=== PATIENT | male | born 1975 | race Caucasian/White ===

== ENCOUNTER → 2024-08-28 | Outpatient (CLI) | payer OTHER, SELFPAY ==
[2024-08-28 10:51] LABS: Absolute Lymphocyte Count 1.76 X10^3/uL (0.83-4.51); Absolute Neutrophil Count 2.5 X10^3/uL (2.0-7.7); Basophil# 0.03 X10^3/uL; Basophil% 0.6 % (0-1); Eosinophil# 0.13 X10^3/uL; Eosinophils% 2.5 % (0-5); Hematocrit 39.9 % (40-54); Hemoglobin 13.7 g/dL (13.0-16.5); Lymphocyte # 1.76 X10^3/ul (0.83-4.51); Lymphocyte % 34.3 % (19-41); Mean Corp Hgb Conc 34.3 g/dL (32-36); Mean Corpuscular Hgb 28.9 pg (27.0-32.0); Mean Corpuscular Volume 84.2 fL (80-94); Monocyte# 0.65 X10^3/uL; Monocyte% 12.7 % (0-10); NRBC Flagged by Analyzer 0 % (0-5); Neutrophil # 2.53 X10^3/uL (2.7-7.7); Neutrophil % 49.3 % (47-70); Platelet Count 236 K/mm3 (150-450); RBC Distribution Width CV 12.5 % (11.6-14.6); RBC Distribution Width SD 37.7 fl (35.1-43.9); Red Blood Count 4.74 M/mm3 (4.6-6.2); White Blood Count 5.1 K/mm3 (4.4-11.0)
[2024-08-28 12:18] LABS: ALB/GLOB Ratio 1.8 RATIO (0.9-2.4); AST(SGOT) 38 U/L (<=37); Alanine Aminotransfer ALT/SGPT 50 U/L (<=46); Albumin, Serum 4.6 g/dL (3.5-5.0); Alkaline Phosphatase 56 U/L (40-129); Anion Gap 13 (5-15); BUN 20 mg/dL (4-19); Calcium,Total 9.7 mg/dL (7.6-11.0); Carbon Dioxide 22.8 mmol/L (21.0-32.0); Chloride 104 mmol/L (98-108); Creatinine, Serum 1.07 mg/dL (0.70-1.20); EST Glomerular Filtration Rate 86 (>60); Globulin 2.6 g/dL (2.2-4.2); Glucose 97 mg/dL (70-99); Hepatitis B Surface Antibody Nonreactive; Hepatitis B Surface Antigen Nonreactive (Nonreactive); Hepatitis C Antibody Nonreactive (Nonreactive); Potassium 4.3 mmol/L (3.3-5.1); Protein, Total 7.1 g/dL (5.9-8.4); Sodium Level 139 mmol/L (133-145); Total Bilirubin 0.54 mg/dL (0.00-1.30)
[2024-08-29 05:07] LABS: Hepatitis A AB, Total Negative (Negative); Hepatitis B Core Ab Total Negative (Negative)
== END | disposition home or self-care (01) ==
LOC: LAB 10:15
PROVIDERS: PCP Family Medicine; Referring Provider Nurse Practitioner Acute Care; Visit Provider Nurse Practitioner Acute Care
DX: K76.0 Fatty (change of) liver, not elsewhere classified (principal); K83.8 Other specified diseases of biliary tract; E78.1 Pure hyperglyceridemia
CPT/HCPCS: 36415; 80053; 85025; 86704; 86706; 86708; 86803; 87340

== ENCOUNTER 2024-11-01 11:32 | Day surgery (SDC) | payer OTHER, SELFPAY ==
--- NOTE | 2024-10-30 11:59 | PAT.ANE_ITS ---
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 When Was Last Pacemaker Check QUESTION #4 FULL TEXT: You/Your Family Experience fever (hyperthermia) with Anesthesia Last Oral Intake Last Oral intake: Last Oral Intake NPO since Meds taken in AM with sips of water? Meds patient instructed to take am of surgery PONV PONV - manufacturing engineer paint: PONV - manufacturing engineer paint Female No 10/30/24 08:33 HX of Motion Sickness No 10/30/24 08:33 HX of N/V After Surgery No 10/30/24 08:33 Non-Smoker Yes 10/30/24 08:33 Duration of Surgery greater No 10/30/24 08:33 than 60 minutes Number of Risk Factors 1 10/30/24 08:33 PONV Score Low Risk 10/30/24 08:33 Height & Weight Height & Weight: Anesthesia: Height & Weight Height 6 ft 2 in 08/28/24 09:16 Respiratory Assessment Respiratory Assessment - manufacturing engineer paint: Respiratory Tract Infection Hx - manufacturing engineer paint Hx Respiratory Tract Infection No 10/30/24 08:33 STOP Sleep Apnea STOP Sleep Apnea - manufacturing engineer paint: STOP Sleep Apnea - manufacturing engineer paint Hx Hypertension No 10/30/24 08:33 Hx Sleep Apnea Yes 10/30/24 08:33 CPAP Yes 10/30/24 08:33 BIPAP No 10/30/24 08:33 Do you snore loudly (louder No 10/30/24 08:33 than talking or can be heard Do you often feel tired/ No 10/30/24 08:33 fatigued/ sleepy during daytime? Has anyone observed you stop No 10/30/24 08:33 breathing during sleep? STOP Results Positive 10/30/24 08:33 QUESTION #5 FULL TEXT : Do you snore loudly (louder than talking or can be heard through closed doors)? 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 Specify any problems Hx of Preganancy in last 3 N/A 10/30/24 08:33 Months Nurse Filling Out Transfusion DSCHRIBER 10/30/24 08:33 & Questions: Date: 10/30/24 10/30/24 08:33 Time: 08:34 10/30/24 08:33 Patient unable to answer at this time (ie. confused, unrespo /Reproduction History /Reproductive History - manufacturing engineer paint: /Reproductive Hx- manufacturing engineer paint Hx Now No 10/30/24 08:33 Gestational Age (in weeks): EDC: Hx Hx Para Hx Section SAB No 10/30/24 08:33 PFSH Medical History (Updated 10/30/24 @ 08:43 by Mary Connor) Wears partial dentures Cancer Marijuana use Alcohol use Arthritis Fatty liver Back pain Injury of head and neck Gastric reflux Asthma Non-smoker Chest pain History of echocardiogram History of stress test Cardiology follow-up encounter Hypertriglyceridemia Paroxysmal supraventricular tachycardia Anxiety History of eye cancer Home Medications ?Medication ?Instructions ?Recorded ?Last Taken ?Type bupropion HCl 150 mg 24 hr tablet, 150 mg PO QAM 01/09 Unknown History extended release escitalopram oxalate 20 mg tablet 20 mg PO QDAY Unknown History hydroxyzine HCl 25 mg tablet 25 mg PO DAILY PRN anxiet y 01/10/24 Unknown History pantoprazole 40 mg tablet,delayed 40 mg PO QDAY Unknown History release aspirin 81 mg tablet,delayed 81 mg PO QDAY 08/28/24 Un known History release fenofibrate nanocrystallized 48 mg 48 mg PO QDAY 08/28 Unknown History tablet (Tricor) multivitamin 1 tab PO QDAY 08/28/24 Unkno wn History omega 8-qyg-gcm-fish oil 60 mg-90 1 cap PO QDAY Unknown History mg-500 mg capsule (Fish Oil) albuterol sulfate 90 mcg/actuation 2 inh inhalation Q4 H PRN shortness 10/30/24 Unknown History breath activated powder inhaler of breath Allergy/AdvReac Type Severity Reaction Status Date / Time No Known Allergies Allergy Verified 10/30/24 08:31 Family History Mother Cancer Breast cancer Ovarian cancer Kidney disease Father Heart disease CVA (cerebral vascular accident) Substance abuse Hypertension Liver disease Sister Chronic mental illness Thyroid disorder Grandfather Heart disease Grandmother Cancer Arthritis Surgical History (Updated 10/30/24 @ 08:43 by Mary Connor) History of esophagogastroduodenoscopy (EGD) Hx of colonoscopy History of left heart catheterization (06/27/13) History of arthroscopy of right knee Plantar wart of left foot History of bone graft History of eye surgery (~11/2022) Social History Smoking Status: Never smoker alcohol intake: current alcohol intake frequency: a few times a month Alcohol type: beer details: occasional substance use type: marijuana what type of physical activity do you participate in: weight training frequency: 3-4 times per week Audit: Pertinent Findings Pertinent Findings Stress test pertinent findings: 12/2023: Negative stress test Echo (EF%) pertinent findings: As per cardiac note: 12/2023 Mod , Calcificied aortic valve Heart catheterization pertinent findings: 12/2023: Borderline pulm HTN, LV systolic EF 60-65%. Mild CAD on study Recommendation Anesthesia Recommendation Anesthesia recommendation: OPTIMIZED for anesthesia
[2024-11-01] VITALS (7 sets, daily range): BP systolic 100–144; BP diastolic 62–77; PULSE 50–52; RESP 16–51; TEMP 36.1–36.7; O2SAT 95–98; BMI 34.2
--- NOTE | 2024-11-01 11:50 | PCM.HP.STD ---
HPI - General General Date of Admission: 11/01/24 Date of Service: 11/01/24 Chief Complaint: Personal history of polyps HPI Narrative BABAR ELLSWORTH, is a 48 M who presents for surveillance colonoscopy. 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 ABD US 04/09/2024 steatosis, CBD 7mm (previously 8mm) EGD 01/15/2024 for LUQ discomfort, pressure, ache, intermittent, symptoms have never fully resolved with pantoprazole - this pain has been lingering for >6 years but better with pantoprazole - he has breakthrough reflux - reports he is due for a colonoscopy - personal h/o of adenomas - believes his last colonoscopy was 6 years ago - denies any family h/o colon CA - denies any change in bowel habits - denies any bleeding - gaining weight like its my job - weight is up 40lbs in the past couple years - occasional alcohol use - IBU on occasion for left heel spur and Achilles pain - Dad with liver disease - hepatitis [facility] Medical History Wears partial dentures Cancer Marijuana use Alcohol use Arthritis Fatty liver Back pain Injury of head and neck Gastric reflux Asthma Non-smoker Chest pain History of echocardiogram History of stress test Cardiology follow-up encounter Hypertriglyceridemia Paroxysmal supraventricular tachycardia Anxiety History of eye cancer Home Medications ?Medication ?Instructions ?Recorded ?Last Taken ?Type bupropion HCl 150 mg 24 hr tablet, 150 mg PO QAM 01/10/24 Unknown History extended release escitalopram oxalate 20 mg tablet 20 mg PO QDAY 01/10/24 Unknown History hydroxyzine HCl 25 mg tablet 25 mg PO DAILY PRN anxiety 01/10/24 Unknown History pantoprazole 40 mg tablet,delayed 40 mg PO QDAY 01/10/24 Unknown History release aspirin 81 mg tablet,delayed 81 mg PO QDAY 08/28/24 Unknown History release fenofibrate nanocrystallized 48 mg 48 mg PO QDAY 08/28/24 Unknown History tablet (Tricor) multivitamin 1 tab PO QDAY 08/28/24 Unknown History omega 1-thy-kgr-fish oil 60 mg-90 1 cap PO QDAY 08/28/24 Unknown History mg-500 mg capsule (Fish Oil) albuterol sulfate 90 mcg/actuation 2 inh inhalation Q4H PRN shortness 10/30/24 Unknown History breath activated powder inhaler of breath sodium sul 1.479 gram-potas ch See Rx Instructions PO PER PKG DIR 10/30/24 Unknown Rx 0.188 gram-magnes sul 0.225 gram #24 tabs tablet (Sutab) Allergy/AdvReac Type Severity Reaction Status Date / Time No Known Allergies Allergy Verified 10/30/24 08:31 Family History Mother Cancer Breast cancer Ovarian cancer Kidney disease Father Heart disease CVA (cerebral vascular accident) Substance abuse Hypertension Liver disease Sister Chronic mental illness Thyroid disorder Grandfather Heart disease Grandmother Cancer Arthritis Surgical History History of esophagogastroduodenoscopy (EGD) Hx of colonoscopy History of left heart catheterization (06/27/13) History of arthroscopy of right knee Plantar wart of left foot History of bone graft History of eye surgery (~11/2022) Social History Smoking Status: Never smoker alcohol intake: current alcohol intake frequency: a few times a month Alcohol type: beer details: occasional substance use type: marijuana what type of physical activity do you participate in: weight training frequency: 3-4 times per week ROS Constitutional Constitutional: Denies fatigue, fever(s), poor appetite, weight gain or weight loss Gastrointestinal Gastrointestinal: Denies belching, bloating, change in bowel habits, change in stool character, chewing difficulty, coffee ground emesis, constipation, cramping, diarrhea, dyspepsia, dysphagia, early satiety, excessive flatus, fecal incontinence, heartburn, hematemesis, hematochezia, hemorrhoids, loose stools, melena, nausea, odynophagia, rectal bleeding, tenesmus, vomiting or weight changes Physical Exam Const alert, oriented x3, no apparent distress and healthy appearing General Appearance: cooperative GI normal to inspection, nondistended, normoactive bowel sounds, soft to palpation, non-tender and non-distended Percussion: normal to percussion Rectal Exam: deferred Assessment & Plan Assessment/Plan (1) Personal history of colonic polyps: PLAN: Assessment and Plan Assessment and Plan (1) Steatosis of liver: Status: Acute (2) Dilated cbd, acquired: Status: Acute (3) Steatosis of liver: Status: Acute (4) Dilated cbd, acquired: Status: Acute (5) Hypertriglyceridemia: Status: Acute (6) Personal history of colonic polyps: Status: Acute Orders: Orders Abdomen Complete 5 Weeks K76.0 - Fatty (change of) liver, not elsewhere classified, K83.8 - Other specified diseases of biliary tract CBC W/Diff, Automated Today E78.1 - Pure hyperglyceridemia, K76.0 - Fatty (change of) liver, not elsewhere classified, K83.8 - Other specified diseases of biliary tract Comprehensive Metabolic Profil Today E78.1 - Pure hyperglyceridemia, K76.0 - Fatty (change of) liver, not elsewhere classified, K83.8 - Other specified diseases of biliary tract Hepatitis A AB, Total Today E78.1 - Pure hyperglyceridemia, K76.0 - Fatty (change of) liver, not elsewhere classified, K83.8 - Other specified diseases of biliary tract Hepatitis B Core Ab Total Today E78.1 - Pure hyperglyceridemia, K76.0 - Fatty (change of) liver, not elsewhere classified, K83.8 - Other specified diseases of biliary tract Hepatitis B Surface Antibody Today E78.1 - Pure hyperglyceridemia, K76.0 - Fatty (change of) liver, not elsewhere classified, K83.8 - Other specified diseases of biliary tract Hepatitis B Surface Antigen Today E78.1 - Pure hyperglyceridemia, K76.0 - Fatty (change of) liver, not elsewhere classified, K83.8 - Other specified diseases of biliary tract Hepatitis C Antibody Today E78.1 - Pure hyperglyceridemia, K76.0 - Fatty (change of) liver, not elsewhere classified, K83.8 - Other specified diseases of biliary tract [facility] Misc. Today E78.1 - Pure hyperglyceridemia, K76.0 - Fatty (change of) liver, not elsewhere classified, K83.8 - Other specified diseases of biliary tract Plan 48-year-old male presents for initial consultation with a personal history of colon polyps. He believes his last colonoscopy was 6 years ago and reports this revealed adenomas. [facility] is significant for melanoma of the retina in 2022 and is presently undergoing abdominal ultrasound every 6 months to monitor for metastasis. RUQ abdominal ultrasound completed 04/09/2024 revealed steatosis of the liver and mildly dilated CBD of 7 mm, previously 8 mm. I have ordered labs, FibroScan, and abdominal ultrasound which he will complete at 6-month interval (October 2024). I have scheduled him for a colonoscopy and he will follow-up in the office post procedure. Patient Instructions: - Colonoscopy - SuTab - Obtain EGD pathology 01/2024 Dr. Pulliam - FibroScan with Dexmo - Complete labs - 6 month US due October 2024 - Vamsi - will need to fax results ot Dr. Monge in [place] - Follow-up wit me in the office post procedure
[2024-11-01] MEDS: Lactated Ringers 1,000 ML 15 ML IV (12:01)
--- NOTE | 2024-11-01 12:30 | COLBX_PTH ---
PATIENT: BABAR ELLSWORTH LOC: [facility] U#:[id number] AGE/SX: 48/M ROOM: RE11/01/[address]: Dr. Tristin Wright DO : 1975 BED: DIS: 11/01/2024 SPEC #: [id number] RECD: 11/01/24 15:39 STATUS: TYRONE REJyoti #: [id number] HIREN: 11/01/24 12:[address]: Tristin Wright DEPT: SURGICAL PATHOLOGY RECD BY: Estiven Lorenzo ENTERED: 11/01/24 15:55 SP TYPE: COLON BX PHILIPPE DR: Dr. Stephany Winchester MD Tissues: A - Ileum, NOS B - COLON BIOPSY Procedures: Surgery Specimen Level IV HEADER OPERATION: Colonoscopy and biopsy PRE-OP DIAGNOSIS: Personal history of colon polyps TISSUE SUBMITTED: A- Terminal ileum biopsy, B- Random colon biopsy MICROSCOPIC DIAGNOSIS A. Terminal ileum, biopsy: - Fragments of ileal mucosa with prominent mucosal lymphoid tissue, favor reactive. - Fragment of unremarkable colonic mucosa. B. Colon, random biopsy: - No specific pathologic change. - The histologic features of microscopic colitis are not demonstrated. MICROSCOPIC DESCRIPTION Slides are reviewed. GROSS DESCRIPTION A. Received in fixative is one container labeled with the patient's name and designated Terminal ileum biopsy. The specimen consists of three irregular fragments of light marlow soft tissue that in aggregate measure 0.4 to 0.6 cm. The specimen is totally submitted in one cassette. B. Received in fixative is one container labeled with the patient's name and designated Random colon biopsy. The specimen consists of multiple irregular fragments of light marlow soft tissue that in aggregate measure 1.3 x 0.6 x 0.2 cm. The specimen is totally submitted in one cassette. Lindsay 11/01/2024 CPT:08391z8
--- NOTE | 2024-11-01 12:35 | PRE.ANES_ITS ---
ASA Classification* ASA Classification ASA Classification: 3 Assessment & Plan Anesthesia* Anesthesia Assessment Anesthesia Assessment: Discussed sedation and/or anesthesia options, risks, benefits, and alternatives with patient/parents/legal guardian/POA. Questions invited. The patient/parents/legal guardian/POA seems to understand and agrees to proceed with anesthesia plan. Reviewed the physical assessment, medical history, allergy history and patient home medications list prior to surgery/procedure/anesthetic and documented any changes. Performed airway and anesthesia risk assessments. Anesthesia Type Anesthesia Type: MAC (Patient has moderate aortic stenosis. Avoid low blood pressures and high heart rates. Phenylephrine is drug of choice.) History Source History Obtained from:: Patient and Chart Anesthesia Focused Assessment* Temperature: 98.1 F Pulse Rate: 51 Blood Pressure: 144/67 Respiratory Rate: 51 Pulse Ox: 98 Oxygen Delivery Method: Room Air Airway Assessment Mouth opens: >3 cm Mallampati Score: II Teeth Condition: Partial (Partial is out. Rest are tight.) Neck Range of motion (ROM): Full ROM Labs Anesthesia Preop lab: CBC WBC 5.1 K/mm3 (4.4-11.0) 08/28/24 10:08/28/24 RBC 4.74 M/mm3 (4.6-6.2) 08/28/24 10:08/28/24 Hgb 13.7 g/dL (13.0-16.5) 08/28/24 10:08/28/24 Hct 39.9 % (40-54) L 08/28/24 10:08/28/24 Plt Count 236 K/mm3 (150-450) 08/28/24 10:08/28/24 CHEMISTRY Potassium 4.3 mmol/L (3.3-5.1) 08/28/24 10:08/28/24 Sodium 139 mmol/L (133-145) 08/28/24 10:08/28/24 BUN 20 mg/dL (4-19) H 08/28/24 10:08/28/24 Creatinine 1.07 mg/dL (0.70-1.20) 08/28/24 10:08/28/24 Glucose 97 mg/dL (70-99) 08/28/24 10:08/28/24 COAG Pre-Assessment Diagnosis/Proposed Procedure Planned Operative Procedure(s): CSCOPE Anesthesia History 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 When Was Last Pacemaker Check QUESTION #4 FULL TEXT: You/Your Family Experience fever (hyperthermia) with Anesthesia Last Oral Intake Last Oral intake: Last Oral Intake NPO since 07:00 11/01/24 11:57 Meds taken in AM with sips of Yes 11/01/24 11:57 water? Meds patient instructed to see med rec 11/01/24 11:57 take am of surgery Any additional information?: Yes NPO since: 07:00 (Patient water at 7 AM to take meds.) Meds taken in AM with sips of water?: Yes PONV PONV - bacteriology teacher: PONV - bacteriology teacher Female No 10/30/24 08:33 HX of Motion Sickness No 10/30/24 08:33 HX of N/V After Surgery No 10/30/24 08:33 Non-Smoker Yes 10/30/24 08:33 Duration of Surgery greater No 10/30/24 08:33 than 60 minutes Number of Risk Factors 1 10/30/24 08:33 PONV Score Low Risk 10/30/24 08:33 Height & Weight Height & Weight: Anesthesia: Height & Weight Height 6 ft 2 in 11/01/24 11:57 Weight: 121 kg 11/01/24 11:57 Body Mass Index (BMI) 34.2 11/01/24 11:57 Respiratory Assessment Respiratory Assessment - bacteriology teacher: Respiratory Tract Infection Hx - bacteriology teacher Hx Respiratory Tract Infection No 10/30/24 08:33 STOP Sleep Apnea STOP Sleep Apnea - bacteriology teacher: STOP Sleep Apnea - bacteriology teacher Hx Hypertension No 10/30/24 08:33 Hx Sleep Apnea Yes 10/30/24 08:33 CPAP Yes 10/30/24 08:33 BIPAP No 10/30/24 08:33 Do you snore loudly (louder No 10/30/24 08:33 than talking or can be heard Do you often feel tired/ No 10/30/24 08:33 fatigued/ sleepy during daytime? Has anyone observed you stop No 10/30/24 08:33 breathing during sleep? STOP Results Positive 10/30/24 08:33 QUESTION #5 FULL TEXT : Do you snore loudly (louder than talking or can be heard through closed doors)? 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 Specify any problems Hx of Preganancy in last 3 N/A 10/30/24 08:33 Months Nurse Filling Out Transfusion DSCHRIBER 10/30/24 08:33 & Questions: Date: 10/30/24 10/30/24 08:33 Time: 08:34 10/30/24 08:33 Patient unable to answer at this time (ie. confused, unrespo /Reproduction History /Reproductive History - bacteriology teacher: /Reproductive Hx- bacteriology teacher Hx Now No 10/30/24 08:33 Gestational Age (in weeks): EDC: Hx Hx Para Hx Section SAB No 10/30/24 08:33 Active Medications Active Medications: Current Medications Generic Name Dose Route Start Last Admin Trade Name Freq PRN Reason Stop Dose Admin Lactated Ringer's 1,000 mls @ 15 mls/hr 11/01/24 11:45 11/01/24 12:01 IV 15 mls/hr .Q48H JANY Administration PFSH Medical History Wears partial dentures Cancer Marijuana use Alcohol use Arthritis Fatty liver Back pain Injury of head and neck Gastric reflux Asthma Non-smoker Chest pain History of echocardiogram History of stress test Cardiology follow-up encounter Hypertriglyceridemia Paroxysmal supraventricular tachycardia Anxiety History of eye cancer Home Medications ?Medication ?Instructions ?Recorded ?Last Taken ?Type bupropion HCl 150 mg 24 hr tablet, 150 mg PO QAM 01/0911/01/24 07:00 History extended release escitalopram oxalate 20 mg tablet 20 mg PO QDAY 11/01/24 07:00 History hydroxyzine HCl 25 mg tablet 25 mg PO DAILY PRN anxiet y 01/10/24 Unknown History pantoprazole 40 mg tablet,delayed 40 mg PO QDAY 11/01/24 07:00 History release aspirin 81 mg tablet,delayed 81 mg PO QDAY 08/28/24 History release fenofibrate nanocrystallized 48 mg 48 mg PO QDAY 08/2811/01/24 07:00 History tablet (Tricor) multivitamin 1 tab PO QDAY 08/28/24 Unkno wn History omega 3-khz-kow-fish oil 60 mg-90 1 cap PO QDAY Unknown History mg-500 mg capsule (Fish Oil) albuterol sulfate 90 mcg/actuation 2 inh inhalation Q4 H PRN shortness 10/30/24 Unknown History breath activated powder inhaler of breath sodium sul 1.479 gram-potas ch See Rx Instructions PO PER PKG DIR 10/30/24 Unknown Rx 0.188 gram-magnes sul 0.225 gram #24 tabs tablet (Sutab) Allergy/AdvReac Type Severity Reaction Status Date / Time No Known Allergies Allergy Verified 11/01/24 11:55 Family History Mother Cancer Breast cancer Ovarian cancer Kidney disease Father Heart disease CVA (cerebral vascular accident) Substance abuse Hypertension Liver disease Sister Chronic mental illness Thyroid disorder Grandfather Heart disease Grandmother Cancer Arthritis Surgical History History of esophagogastroduodenoscopy (EGD) Hx of colonoscopy History of left heart catheterization (06/27/13) History of arthroscopy of right knee Plantar wart of left foot History of bone graft History of eye surgery (~11/2022) Social History Smoking Status: Never smoker alcohol intake: current alcohol intake frequency: a few times a month Alcohol type: beer details: occasional substance use type: marijuana what type of physical activity do you participate in: weight training frequency: 3-4 times per week Review of Systems (Anesthesia) ROS Narrative System reviewed and no additional complaints, except as documented.
--- NOTE | 2024-11-01 13:10 | OP.CCLET_ITS ---
11/01/2024 Stephany Winchester Md Re : Colonoscopy procedure for Remy Werner Dear Annabella This procedure was performed on Friday, November 01, 2024. My impressions and recommendations are as follows: Impressions : - Diverticulosis in the sigmoid colon, at the hepatic flexure and in the ascending colon. - Congested mucosa in the sigmoid colon, at the hepatic flexure and in the ascending colon. Biopsied. - Congested mucosa in the terminal ileum. Biopsied. Recommendations : - Discharge patient to home. - Resume previous diet. - Continue present medications. - Await pathology results. - Repeat colonoscopy in 5 years for surveillance. My findings are described in the full procedure note, which is enclosed. If I can be of further assistance, please feel free to contact me at . Sincerely, Tristin Wright, 11/01/2024 1:09:53 PM This report has been signed electronically.
--- NOTE | 2024-11-01 13:10 | OP.COLON_ITS ---
Patient Name: Remy Werner Procedure Date: 11/01/2024 12:37 PM Date of : 1975 Age: 48 Procedure: Colonoscopy Indications: Screening for colorectal malignant neoplasm Providers: Tristin Wright DO Referring MD: Stephany Winchester Md Medicines: Monitored Anesthesia Care Patient Profile: This is a 48 year old male. Refer to note in patient chart for documentation of history and physical. Last Colonoscopy: several years ago. Complications: No immediate complications. Procedure: Pre-Anesthesia Assessment: - Prior to the procedure, a History and Physical was performed, and patient medications and allergies were reviewed. The patient is competent. The risks and benefits of the procedure and the sedation options and risks were discussed with the patient. All questions were answered and informed consent was obtained. Patient identification and proposed procedure were verified by the physician in the pre-procedure area. Mental Status Examination: alert and oriented. Airway Examination: normal oropharyngeal airway and neck mobility. Respiratory Examination: clear to auscultation. CV Examination: normal. Prophylactic Antibiotics: The patient does not require prophylactic antibiotics. Prior Anticoagulants: The patient has taken no anticoagulant or antiplatelet agents except for NSAID medication. ASA Grade Assessment: II - A patient with mild systemic disease. After reviewing the risks and benefits, the patient was deemed in satisfactory condition to undergo the procedure. The anesthesia plan was to use monitored anesthesia care (MAC). Immediately prior to administration of medications, the patient was re-assessed for adequacy to receive sedatives. The heart rate, respiratory rate, oxygen saturations, blood pressure, adequacy of pulmonary ventilation, and response to care were monitored throughout the procedure. The physical status of the patient was re-assessed after the procedure. After I obtained informed consent, the scope was passed under direct vision. Throughout the procedure, the patient's blood pressure, pulse, and oxygen saturations were monitored continuously. The Colonoscope was introduced through the anus and advanced to the terminal ileum. The colonoscopy was performed without difficulty. The patient tolerated the procedure well. The quality of the bowel preparation was adequate. The ileocecal valve, appendiceal orifice, and rectum were photographed. Scope In: 12:52:41 PM Scope Withdrawal Time 0 hours 11 minutes 10 seconds Scope Out: 1:05:42 PM Total Procedure Duration Time 0 hours 13 minutes 1 second Findings: The perianal and digital rectal examinations were normal. A few small-mouthed diverticula were found in the sigmoid colon, hepatic flexure and ascending colon. An area of mildly congested mucosa was found in the sigmoid colon, at the hepatic flexure and in the ascending colon. Biopsies were taken with a cold forceps for histology. Verification of patient identification for the specimen was done. Estimated blood loss was minimal. A patchy area of the terminal ileum was congested. Biopsies were taken with a cold forceps for histology. Verification of patient identification for the specimen was done. Estimated blood loss was minimal. Impression: - Diverticulosis in the sigmoid colon, at the hepatic flexure and in the ascending colon. - Congested mucosa in the sigmoid colon, at the hepatic flexure and in the ascending colon. Biopsied. - Congested mucosa in the terminal ileum. Biopsied. Recommendation: - Discharge patient to home. - Resume previous diet. - Continue present medications. - Await pathology results. - Repeat colonoscopy in 5 years for surveillance. Procedure Code(s): --- Professional --- 35787, Colonoscopy, flexible; with biopsy, single or multiple CPT copyright 2021 [employer]. All rights reserved. The codes documented in this report are preliminary and upon parts salesperson review may be revised to meet current compliance requirements. Tristin Wright DO 11/01/2024 1:09:53 PM This report has been signed electronically. Number of Addenda: 0 Note Initiated On: 11/01/2024 12:37 PM
--- NOTE | 2024-11-01 13:11 | PCM.POST.ANE ---
Anesthesia: Postop Eval I Current Vital Signs Temperature: 97.9 F Pulse Rate: 50 Blood Pressure: 125/77 Respiratory Rate: 18 Pulse Ox: 95 Assessment Airway patent: Yes Spontaneous unlabored respirations: Yes nausea: No Vomiting: No Anesthesia Complication: No Fluid Hydration Crystalloid volume administer (ml): 500 Total IV fluid infused: 500 Progress Note Anesthesia document: Postop Eval 1 completed: Yes
--- NOTE | 2024-11-01 13:54 | POSTOPAN2_ITS ---
Anesthesia Postop Eval I Sum Postop Eval Completion status Anesthesia document: Postop Eval 1 completed: Yes Anesthesia Postop Eval I Summary Anesthesia Postop Eval I Summary: Anesthesia Postop Eval I: Assessment Summary Airway patent Yes 11/01/24 13:11 MANAGING COGNITIVE ENGINEER.[email or web address] Spontaneous unlabored Yes 11/01/24 13:11 MANAGING COGNITIVE ENGINEER.CSIR respirations Mental status nausea No 11/01/24 13:11 MANAGING COGNITIVE ENGINEER.CSIR Vomiting No 11/01/24 13:11 MANAGING COGNITIVE ENGINEER.CSIR Anesthesia Postop Eval I: Fluid Summary Crystalloid volume administer 500 11/01/24 13:11 MANAGING COGNITIVE ENGINEER.CSIR (ml) Colloids volume administered ( ml) Blood Product volume administered (ml) Total IV fluid infused 500 11/01/24 13:11 MANAGING COGNITIVE ENGINEER.CSIR Anesthesia Postop Eval I: Summary Notes Anesthesia Complication No 11/01/24 13:11 MANAGING COGNITIVE ENGINEER.CSIR Anesthesia Complication Comment: Post-operative progress note Anesthesia: Postop Eval II Evaluation Mental status: Awake Pain Level: 0 nausea: No Vomiting: No
--- NOTE | 2024-11-01 13:54 | PCM.POSTANE2 ---
Anesthesia Postop Eval I Sum Postop Eval Completion status Anesthesia document: Postop Eval 1 completed: Yes Anesthesia Postop Eval I Summary Anesthesia Postop Eval I Summary: Anesthesia Postop Eval I: Assessment Summary Airway patent Yes 11/01/24 13:11 CAKE [email or web address].[email or web address] Spontaneous unlabored Yes 11/01/24 13:11 CAKE [email or web address].CSIR respirations Mental status nausea No 11/01/24 13:11 CAKE [email or web address].[email or web address] Vomiting No 11/01/24 13:11 CAKE [email or web address].CSIR Anesthesia Postop Eval I: Fluid Summary Crystalloid volume administer 500 11/01/24 13:11 CAKE [email or web address].CSIR (ml) Colloids volume administered ( ml) Blood Product volume administered (ml) Total IV fluid infused 500 11/01/24 13:11 CAKE [email or web address].CSIR Anesthesia Postop Eval I: Summary Notes Anesthesia Complication No 11/01/24 13:11 CAKE [email or web address].CSIR Anesthesia Complication Comment: Post-operative progress note Anesthesia: Postop Eval II Evaluation Mental status: Awake Pain Level: 0 nausea: No Vomiting: No
== END 2024-11-01 13:39 | disposition home or self-care (01) ==
LOC: EN 11:32 → AC 11:33
PROVIDERS: PCP Family Medicine; Referring Provider Family Medicine; Visit Provider Internal Medicine Gastroenterology
PROC: 0DJD8ZZ Inspection of Lower Intestinal Tract, Via Natural or Artificial Opening Endoscopic (ICD-10-PCS; CPT 45378; principal; 2024-11-01 12:25)
DX: Z12.11 Encounter for screening for malignant neoplasm of colon (principal); K57.30 Diverticulosis of large intestine without perforation or abscess without bleeding; K76.0 Fatty (change of) liver, not elsewhere classified; Z86.0100 Personal history of colon polyps, unspecified; K21.9 Gastro-esophageal reflux disease without esophagitis; K83.8 Other specified diseases of biliary tract; J45.909 Unspecified asthma, uncomplicated; E78.1 Pure hyperglyceridemia; Z79.899 Other long term (current) drug therapy; F41.9 Anxiety disorder, unspecified
CPT/HCPCS: 45380; 88305; J2405